=== PATIENT | male | born 1965 | race Caucasian/White ===

== ENCOUNTER → 2017-10-04 | Outpatient (CLI) | payer OTHER ==
[2017-10-04 14:53] LABS: Basophils # (A) 0.1 k/uL (0-0.2); Basophils % (A) 1 %; Eosinophils # (A) 0.4 k/uL (0-0.7); Eosinophils % (A) 6 %; HCT 46.3 % (39.0-53.0); HGB 15.7 gm/dL (13.0-17.5); Lymphocytes # (A) 1.7 k/uL (1.0-4.8); Lymphocytes % (A) 24 %; MCH 30.5 pg (25.0-35.0); MCV 89.9 fL (80.0-100.0); Mean Platelet Volume 6.8; Monocytes # (A) 0.4 k/uL (0-1.0); Monocytes % (A) 6 %; Neutrophils # (A) 4.3 k/uL (1.3-7.7); Neutrophils % (A) 62 %; Platelet Count 262 k/uL (150-450); RBC 5.15 m/uL (4.30-5.90); RDW 12.5 % (11.5-15.5); WBC 6.9 k/uL (3.8-10.6)
[2017-10-04 15:01] LABS: Potassium 4.4 mmol/L (3.5-5.1)
== END | disposition home or self-care (01) ==
LOC: LABPAT 14:21
PROVIDERS: ATTEND Orthopaedic Surgery
DX: Z01.812 Encounter for preprocedural laboratory examination (principal); G56.01 Carpal tunnel syndrome, right upper limb
CPT/HCPCS: 36415; 80051; 85025

== ENCOUNTER 2017-11-01 09:47 | Day surgery (SDC) | payer OTHER ==
--- NOTE | 2017-10-31 12:42 | HP ---
HISTORY AND PHYSICAL DATE OF SERVICE: 11/01/2017 Rick Lares is a 52-year-old patient seen with progressive symptomatic right carpal tunnel syndrome as well as a middle and ring finger trigger fingers. We discussed treatment options. He would proceed with surgical decompression of right median nerve and release of the right middle and ring finger trigger fingers. Consent was obtained. PAST MEDICAL HISTORY: Nkc-uqxflcy-reetnpjhr diabetes, hyperlipidemia. PAST SURGICAL HISTORY: Right knee arthroscopy. MEDICATIONS: 1. Glucophage. 2. Glyburide. 3. Lantus. 4. Lipitor. 5. Omeprazole. ALLERGIES: PENICILLIN. SOCIAL HISTORY: Patient denies current tobacco. PHYSICAL EVALUATION OF THE RIGHT HAND: He has a positive carpal compression, carpal Tinel's causing numbness, tingling within the median nerve distribution. There is tenderness along the A1 erna areas of the middle finger and ring fingers. There is some decreased sensation median nerve distribution. Good radial pulse. Good perfusion distally. Radiographs revealed mild osteoarthritis. EMG revealed carpal tunnel syndrome. IMPRESSION: 1. Right carpal tunnel syndrome. 2. Right middle finger trigger finger. 3. Right ring finger trigger finger. PLAN: 1. Decompression right median nerve. 2. Release A1 erna, right middle finger. 3. Release A1 erna, right ring finger. MMODL / IJN: [id number] /
[~2017-11-01 09:47] MED LIST: DEXAMETHASONE SOD PHOSPHATE 10 MG/ML 1 ML VIAL IV ONE; LACTATED RINGERS 1,000 ML IV SCH; ONDANSETRON 4 MG/2 ML VIAL IVP ONE; ceFAZolin IN SWFI 2 GM/20 ML SYRINGE IVP ONE
[2017-11-01 10:49] VITALS: TEMP 97
[2017-11-01 11:01] LABS: Glucose,Whole Blood 208 mg/dL (75-99)
[2017-11-01] MEDS ORDERED: PROPOFOL 10 MG/ML 20 ML VIAL IV ONE (12:16)
[2017-11-01] MEDS ORDERED: MIDAZOLAM 2 MG/2 ML VIAL ONE (12:16)
[2017-11-01] MEDS ORDERED: fentaNYL (PF) 50 MCG/ML 2 ML AMP ONE (12:16)
[2017-11-01] MEDS ORDERED: BUPIVACAINE (PF) 0.25% 30 ML VIAL SQ ONE ×2 (12:24)
[2017-11-01 12:55] VITALS: RESP 16
--- NOTE | 2017-11-01 13:02 | P.OP ---
Date of Procedure: 11/01/17 Preoperative Diagnosis: 1. Right carpal tunnel syndrome 2. Right middle finger trigger finger 3. Right ring finger trigger finger Postoperative Diagnosis: Same Procedure(s) Performed: 1. Decompression right median nerve 2. Release A1 erna right middle finger 3. Release A1 erna right ring finger Anesthesia: MAC, local Surgeon: Sundeep Morris Estimated Blood Loss (ml): 2 Pathology: none sent Condition: stable Disposition: PACU Indications for Procedure: 52-year-old patient seen was symptomatically right carpal tunnel syndrome as well as symptomatic trigger fingers involving the right middle finger and right ring finger. After treatment options were discussed, he elected to proceed with decompression right median nerve as well as release A1 erna right middle finger and right ring finger. Operative Findings: see description of procedure Description of Procedure: The patient was taken to the operative suite. The patient received preoperative IV antibiotics. The patient underwent IV sedation by the department of anesthesia. A well-padded tourniquet was placed on the proximal right upper extremity. The right upper extremity was prepped and draped in the normal sterile orthopedic fashion. We infiltrated the proposed incision sites with quarter percent plain Marcaine totaling 18 mL of all 3 proposed incision sites. The extremity was elevated and tourniquet was insufflated to 200. I now made an incision beginning at the distal volar wrist crease extending this approximate 3 cm in line with the fourth metacarpal sharply through skin. I dissected down through the subcu soft tissues and the palmar fascia to the transverse carpal ligament. I incised the transverse carpal ligament and released it proximally and distally with blunt Metzenbaums. There was complete release of the transverse carpal ligament good decompression of the nerve. I next made an incision along the A1 erna of the right middle finger. I dissected down to the A1 erna. A1 erna was identified and released without difficulty. We had good complete excursion of the tendon with no impingement noted. I now made an incision along the A1 erna area of the right ring finger. I dissected down to the A1 erna. The A1 erna was identified and released without difficulty. We had good excursion of the tendon with no impingement noted. All wounds were irrigated with saline. All incisions were proximal nylon suture. Sterile dressings were applied to all 3 incision sites. Sterile dressings were applied followed by a sterile web bone Jarett bandage. The tourniquet was now released with immediate capillary refill of all digits noted. The patient was then awakened, taken to recovery stable condition.
[2017-11-01 13:06] VITALS: BP 125/80; PULSE 94
[2017-11-01 13:18] LABS: Glucose,Whole Blood 229 mg/dL (75-99)
== END 2017-11-01 14:37 | disposition home or self-care (01) ==
LOC: OR 09:47
PROVIDERS: ATTEND Orthopaedic Surgery
DX: G56.01 Carpal tunnel syndrome, right upper limb (principal); M65.331 Trigger finger, right middle finger; M65.341 Trigger finger, right ring finger; E11.9 Type 2 diabetes mellitus without complications; E78.5 Hyperlipidemia, unspecified; F39 Unspecified mood [affective] disorder; K21.9 Gastro-esophageal reflux disease without esophagitis; Z79.84 Long term (current) use of oral hypoglycemic drugs; Z79.4 Long term (current) use of insulin; Z79.899 Other long term (current) drug therapy; Z88.0 Allergy status to penicillin
CPT/HCPCS: 64721; 26055 ×2; A4371; A4385; J2250; J1100; J2405; J3010; J2704; J0690

== ENCOUNTER → 2017-11-15 | Outpatient (CLI) | payer OTHER ==
[2017-11-15 18:33] LABS: Basophils # (A) 0.1 k/uL (0-0.2); Basophils % (A) 1 %; Eosinophils # (A) 0.8 k/uL (0-0.7); Eosinophils % (A) 12 %; HCT 38.3 % (39.0-53.0); Lymphocytes # (A) 1.7 k/uL (1.0-4.8); Lymphocytes % (A) 25 %; MCH 28.4 pg (25.0-35.0); MCHC 32.6 g/dL (31.0-37.0); Monocytes # (A) 0.4 k/uL (0-1.0); Monocytes % (A) 5 %; Neutrophils # (A) 3.9 k/uL (1.3-7.7); Neutrophils % (A) 56 %; Platelet Count 383 k/uL (150-450); RDW 13.2 % (11.5-15.5)
[2017-11-15 18:42] LABS: HGB 12.5 gm/dL (13.0-17.5)
[2017-11-15 18:46] LABS: Potassium 4.7 mmol/L (3.5-5.1)
== END | disposition home or self-care (01) ==
LOC: LABWHC1 17:08
PROVIDERS: ATTEND Psychiatry & Neurology Forensic Psychiatry
DX: Z01.812 Encounter for preprocedural laboratory examination (principal); G56.02 Carpal tunnel syndrome, left upper limb
CPT/HCPCS: 36415; 80051; 85025

== ENCOUNTER 2017-11-22 07:41 | Day surgery (SDC) | payer OTHER ==
[2017-11-17 13:52] VITALS: BMI 30.3
--- NOTE | 2017-11-21 11:40 | HP ---
HISTORY AND PHYSICAL DATE OF SERVICE: 11/22/2017 Rick Lares is a 52-year-old patient seen with symptomatic left carpal tunnel syndrome as well as trigger fingers involving the left middle finger and left small finger. We discussed treatment options. He elected to proceed with surgical intervention. Consent regarding the procedure was obtained. PAST MEDICAL HISTORY: Insulin-dependent diabetes, hyperlipidemia, gastroesophageal reflux disease. PAST SURGICAL HISTORY: Right knee arthroscopy, right carpal tunnel release. DAILY MEDICATIONS: 1. Lantus insulin. 2. Glyburide. 3. Glucophage. 4. Lipitor. 5. Omeprazole. ALLERGIES: PENICILLIN. SOCIAL HISTORY: Patient denies current tobacco use. PHYSICAL EVALUATION OF THE LEFT HAND: He has a positive carpal compression, carpal Tinel's which cause numbness and tingling into the median nerve distribution. There is tenderness along the A1 erna areas of the left small finger and left middle finger. Distal neurovascular exam is intact. EMG of the upper extremities revealed carpal tunnel syndrome. IMPRESSION: 1. Left carpal tunnel syndrome. 2. Left middle finger trigger finger. 3. Left small finger trigger finger. 4. Insulin-dependent diabetes. 5. Hyperlipidemia. 6. Gastroesophageal reflux disease. PLAN: Decompression left median nerve with release A1 pulleys of left middle finger and left small finger. MMODL / IJN: [id number] /
[~2017-11-22 07:41] MED LIST changes: +MORPHINE SULFATE 4 MG/ML SYRINGE IV PRN
[2017-11-22 08:04] VITALS: RESP 16; TEMP 98
[2017-11-22] MEDS ORDERED: LIDOCAINE 1% 20 ML VIAL (10MG/ML) FOR IV START INTRADERMA ONE (08:14)
[2017-11-22 08:24] LABS: Glucose,Whole Blood 74 mg/dL (75-99)
[2017-11-22] MEDS ORDERED: MIDAZOLAM 2 MG/2 ML VIAL ONE (10:59)
[2017-11-22] MEDS ORDERED: PROPOFOL 10 MG/ML 20 ML VIAL IV ONE (10:59)
[2017-11-22] MEDS ORDERED: LIDOCAINE 1% INJ 10MG/ML (20 ML MDV) ONE (10:59)
[2017-11-22] MEDS ORDERED: fentaNYL (PF) 50 MCG/ML 2 ML AMP ONE (10:59)
[2017-11-22] MEDS ORDERED: BUPIVACAINE (PF) 0.25% 30 ML VIAL SQ ONE (11:15)
[2017-11-22] MEDS ORDERED: LACTATED RINGERS 1,000 ML IV ONE (11:35)
--- NOTE | 2017-11-22 11:48 | P.OP ---
Date of Procedure: 11/22/17 Preoperative Diagnosis: 1. Left carpal tunnel syndrome 2. Left middle finger trigger finger 3. Left small finger trigger finger Postoperative Diagnosis: Same Procedure(s) Performed: 1. Decompression left median nerve 2. Release A1 erna left middle finger 3. Release A1 erna left small finger Anesthesia: MAC, local Surgeon: Sundeep Morris Estimated Blood Loss (ml): 2 Pathology: none sent Condition: stable Disposition: PACU Indications for Procedure: 52-year-old patient seen with symptomatic left carpal tunnel syndrome as well as symptomatic trigger fingers of the left middle finger left small finger. After treatment options were discussed elected proceed with decompression left median nerve as well as release A1 pulleys of the left middle finger left small finger. Operative Findings: see description of procedure Description of Procedure: Patient was taken to the operative suite. Patient underwent IV sedation by the department of anesthesia. A well-padded tourniquet was placed left proximal upper extremity. The patient received preoperative IV antibiotics. The extremity was elevated and tourniquet was insufflated to 250. I infiltrated all 3 proposed incision sites with a total of 20 mL quarter percent plain Marcaine. Once sufficient local analgesia was noted I made an incision beginning at the distal volar wrist crease extending distally approximately 3 cm in line with the fourth metacarpal sharply through skin. I dissected down through the subcutaneous soft tissues and through the palmar fascia to the transverse carpal ligament. I incised the transverse carpal ligament and completed the release proximally and distally with blunt Metzenbaums. We had good complete release of the transverse carpal ligament and good decompression of the nerve. I now turned my attention to the A1 erna area of the left small finger. An incision was made in that area, dissection taken down to the A1 erna. The A1 erna was identified and released. There was good complete release of the A1 erna with contractures of the tendon over impingement. I now made an incision over the A1 erna area of the left middle finger. Dissection taken down to the A1 erna. It was identified. I released the A1 erna. There was good complete release of the A1 erna with good excursion of the tendon and no impingement. With good hemostasis. All 3 incision sites were proximal nylon suture. Sterile dressings were applied. He was placed in a well-padded bandage. The tourniquet was released. There was good immediate capillary refill of all digits. The patient is an awakened, and taken recovery stable condition.
[2017-11-22 11:49] LABS: Glucose,Whole Blood 101 mg/dL (75-99)
[2017-11-22 12:29] VITALS: BP 113/78; PULSE 87
== END 2017-11-22 12:42 | disposition home or self-care (01) ==
LOC: OR 07:41
PROVIDERS: ATTEND Orthopaedic Surgery
DX: G56.02 Carpal tunnel syndrome, left upper limb (principal); M65.332 Trigger finger, left middle finger; M65.352 Trigger finger, left little finger; E11.9 Type 2 diabetes mellitus without complications; F39 Unspecified mood [affective] disorder; E78.5 Hyperlipidemia, unspecified; K21.9 Gastro-esophageal reflux disease without esophagitis; Z88.0 Allergy status to penicillin; Z79.4 Long term (current) use of insulin; Z79.899 Other long term (current) drug therapy; Z90.49 Acquired absence of other specified parts of digestive tract
CPT/HCPCS: 64721; 26055 ×2; J2250; J1100; J2405; J2001; J3010; J2704; J0690

== ENCOUNTER 2018-10-09 09:38 | Day surgery (SDC) | payer OTHER ==
[2018-10-04 17:03] VITALS: BMI 34.5
[~2018-10-09 09:38] MED LIST changes: -DEXAMETHASONE SOD PHOSPHATE 10 MG/ML 1 ML VIAL IV ONE; +LIDOCAINE 1% 20 ML VIAL (10MG/ML) FOR IV START INTRADERMA PRN; +MIDAZOLAM (PF) 2 MG/2 ML VIAL IV PRN; -MORPHINE SULFATE 4 MG/ML SYRINGE IV PRN; -ONDANSETRON 4 MG/2 ML VIAL IVP ONE; -ceFAZolin IN SWFI 2 GM/20 ML SYRINGE IVP ONE
[2018-10-09 10:26] VITALS: RESP 16; TEMP 98.2
[2018-10-09 10:26] LABS: Glucose,Whole Blood 106 mg/dL (75-99)
[2018-10-09] MEDS ORDERED: PROPOFOL 10 MG/ML 20 ML VIAL IV ONE (10:54)
--- NOTE | 2018-10-09 11:24 | P.OP ---
Date of Procedure: 10/09/18 Preoperative Diagnosis: History of colon cancer Postoperative Diagnosis: History of colon cancer, inflammation of anastomosis Procedure(s) Performed: Colonoscopy with biopsy Anesthesia: MAC Surgeon: Mary Dubose Pathology: other (Because of anastomosis) Condition: stable Disposition: PACU Indications for Procedure: Irrigation is one year status post low anterior resection for colon cancer Description of Procedure: The patient's taken the endoscopy suite where colonoscope is passed per rectum to the cecum. The prep is fair. There is liquidy material. Some of its able to be irrigated and aspirated but a small polyp could have been missed. The anastomosis is low about 5 cm. There is some inflammatory changes around the anastomosis. Multiple cold biopsies were obtained. Otherwise the rest colon was without evidence of polyp mass lesion or other mucosal abnormality. He tolerated the procedure without difficulty as taken recovery room in satisfactory condition. Call with the report of the biopsy and let him know what his follow-up should be. Plan - Discharge Summary Discharge Rx Participant: No New Discharge Prescriptions: No Action DULoxetine HCL [Cymbalta] 60 mg PO HS Insulin Glargine [Lantus] 50 unit SQ BID Lovastatin [Mevacor] 40 mg PO HS metFORMIN HCL 1,000 mg PO BID Ibuprofen 800 mg PO Q8HR PRN #30 tablet PRN Reason: Pain Liraglutide [Victoza 2-Valente] 1.8 mg SQ DAILY Pioglitazone HCl [Actos] 30 mg PO DAILY Discharge Medication List DULoxetine HCL [Cymbalta] 60 mg PO HS 10/30/17 [History] Insulin Glargine [Lantus] 50 unit SQ BID 10/30/17 [History] Lovastatin [Mevacor] 40 mg PO HS 10/30/17 [History] metFORMIN HCL 1,000 mg PO BID 10/30/17 [History] Ibuprofen 800 mg PO Q8HR PRN #30 tablet 11/22/17 [Rx] Liraglutide [Victoza 2-Valente] 1.8 mg SQ DAILY 10/04/18 [History] Pioglitazone HCl [Actos] 30 mg PO DAILY 10/05/18 [History] Discharge Disposition: HOME SELF-CARE
[2018-10-09 11:46] VITALS: BP 120/73; PULSE 74
[2018-10-09 11:58] LABS: Glucose,Whole Blood 97 mg/dL (75-99)
== END 2018-10-09 12:25 | disposition home or self-care (01) ==
LOC: ORWHC2ENDO 09:38
PROVIDERS: ATTEND Surgery
DX: K91.89 Other postprocedural complications and disorders of digestive system (principal); K52.9 Noninfective gastroenteritis and colitis, unspecified; Z98.0 Intestinal bypass and anastomosis status; Z90.49 Acquired absence of other specified parts of digestive tract; Z85.038 Personal history of other malignant neoplasm of large intestine; Z85.048 Personal history of other malignant neoplasm of rectum, rectosigmoid junction, and anus; E11.9 Type 2 diabetes mellitus without complications; E78.00 Pure hypercholesterolemia, unspecified; E78.5 Hyperlipidemia, unspecified; M19.90 Unspecified osteoarthritis, unspecified site; K21.9 Gastro-esophageal reflux disease without esophagitis; F32.9 Major depressive disorder, single episode, unspecified; Z79.4 Long term (current) use of insulin; Z79.899 Other long term (current) drug therapy; Z88.0 Allergy status to penicillin; Z98.1 Arthrodesis status
CPT/HCPCS: 88305; 45380; J2704

== ENCOUNTER 2019-11-05 10:43 | Day surgery (SDC) | payer OTHER ==
[2019-10-31 15:41] VITALS: BMI 36.3
[~2019-11-05 10:43] MED LIST changes: +LIDOCAINE 1% (10MG/ML) FOR IV START INTRADERMA PRN; -LIDOCAINE 1% 20 ML VIAL (10MG/ML) FOR IV START INTRADERMA PRN; -MIDAZOLAM (PF) 2 MG/2 ML VIAL IV PRN; +MIDAZOLAM 2 MG/2 ML VIAL IV PRN
[2019-11-05 11:10] VITALS: TEMP 97.5
[2019-11-05 11:12] LABS: Glucose,Whole Blood 85 mg/dL (75-99)
[2019-11-05] MEDS ORDERED: MIDAZOLAM 2 MG/2 ML VIAL ONE (11:58)
[2019-11-05] MEDS ORDERED: fentaNYL (PF) 50 MCG/ML 2 ML AMP ONE (11:58)
[2019-11-05] MEDS ORDERED: PROPOFOL 10 MG/ML 20 ML VIAL IV ONE (11:58)
[2019-11-05] MEDS ORDERED: LIDOCAINE 1% INJ 10MG/ML (20 ML MDV) ONE (11:58)
--- NOTE | 2019-11-05 12:01 | P.GSHP ---
History of Present Illness H&P Date: 11/05/19 colon cancer screening - Review of Systems All systems: negative Past Medical History Past Medical History: Cancer, Diabetes Mellitus, Hyperlipidemia, Osteoarthritis (OA) Additional Past Medical History / Comment(s): HX COLORECTAL CANCER W/Iliostomy, now reversed History of Any Multi-Drug Resistant Organisms: None Reported Past Surgical History: Bowel Resection, Orthopedic Surgery Additional Past Surgical History / Comment(s): BOWEL surgery with Iliostomy. reversal of iliostomy, CERVICAL FUSION. RIGHT SHOULDER BONE SPUR. LEFT KNEE arthroscopy, [facility]. Past Anesthesia/Blood Transfusion Reactions: No Reported Reaction Smoking Status: Never smoker - Past Family History Daughter(s) Family Medical History: Deep Vein Thrombosis (DVT) Father Family Medical History: Cancer Additional Family Medical History / Comment(s): PROSTATE CA Medications and Allergies Home Medications Medication Instructions Recorded Confirmed Type DULoxetine HCL [Cymbalta] 60 mg PO HS 10/30/17 11/05/19 History Lovastatin [Mevacor] 40 mg PO HS 10/30/17 11/05/19 History metFORMIN HCL 1,000 mg PO BID 10/30/17 11/05/19 History Ibuprofen 800 mg PO Q8HR PRN #30 tablet 11/22/17 11/05/19 Rx Liraglutide [Victoza 2-Valente] 1.8 mg SQ DAILY 10/04/18 11/05/19 History Pioglitazone HCl [Actos] 30 mg PO DAILY 10/05/18 11/05/19 History Insulin Glargine,Hum.rec.anlog 50 unit SQ BID 10/31/19 11/05/19 History [Basaglar Dimitry U-100] Allergies Allergy/AdvReac Type Severity Reaction Status Date / Time Penicillins Allergy Unknown Verified 11/05/19 11:05 Childhood HAYFEVER Allergy Itching, Uncoded 11/05/19 11:05 NASAL CONGESTION Surgical - Exam Osteopathic Statement: *. No significant issues noted on an osteopathic structural exam other than those noted in the History and Physical/Consult. Vital Signs Temp Pulse Resp BP Pulse Ox 97.5 F L 81 16 142/81 96 11/05/19 11:07 11/05/19 11:07 11/05/19 11:07 11/05/19 11:07 11/05/19 11:07 - General well developed, well nourished, no distress - Eyes normal ocular movement - Neck trachea midline - Respiratory normal respiratory effort - Cardiovascular Rhythm: regular - Abdomen Abdomen: soft, non tender Assessment and Plan (1) Colon cancer screening Current Visit: Yes Status: Acute Code(s): Z12.11 - ENCOUNTER FOR SCREENING FOR MALIGNANT NEOPLASM OF COLON SNOMED Code(s): 522252093 Plan: colonoscopy.
--- NOTE | 2019-11-05 12:23 | P.OP ---
Date of Procedure: 11/05/19 Preoperative Diagnosis: History of colon cancer, colon cancer screening Postoperative Diagnosis: History of colon cancer, colon cancer screening, Procedure(s) Performed: Colonoscopy with biopsy Anesthesia: MAC Surgeon: Mary Dubose Pathology: other (Polypoid areas at anastomosis) Condition: stable Disposition: PACU Indications for Procedure: Patient has a history of a low anterior resection in September 2017. He had a colonoscopy a year ago showing anastomotic ulcerations. This was treated with steroid suppositories. Description of Procedure: The patient's taken the endoscopy suite where colonoscope is passed per rectum to the cecum. No masses on digital rectal exam. He has a low anastomosis. The prep was fair. There is some thicker material which is irrigated and aspirated. There several polypoid areas which may be granulation tissue versus polyps. He has a small amount of diverticulosis in the descending colon. The rest the colon was without evidence of polyp, mass lesion, stricture or other mucosal abnormality. 3 polypoid areas which were less than 1 cm in size were removed with polypectomy snare and sent for pathology. He tolerated the procedure without difficulty and was taken recovery room in satisfactory condition. I'll call with the report of the biopsies and have further recommendations to follow. Plan - Discharge Summary Discharge Rx Participant: No New Discharge Prescriptions: No Action DULoxetine HCL [Cymbalta] 60 mg PO HS Lovastatin [Mevacor] 40 mg PO HS metFORMIN HCL 1,000 mg PO BID Ibuprofen 800 mg PO Q8HR PRN #30 tablet PRN Reason: Pain Liraglutide [Victoza 2-Valente] 1.8 mg SQ DAILY Pioglitazone HCl [Actos] 30 mg PO DAILY Insulin Glargine,Hum.rec.anlog [Lorena Moraes U-100] 50 unit SQ BID Discharge Medication List DULoxetine HCL [Cymbalta] 60 mg PO HS 10/30/17 [History] Lovastatin [Mevacor] 40 mg PO HS 10/30/17 [History] metFORMIN HCL 1,000 mg PO BID 10/30/17 [History] Ibuprofen 800 mg PO Q8HR PRN #30 tablet 11/22/17 [Rx] Liraglutide [Victoza 2-Valente] 1.8 mg SQ DAILY 10/04/18 [History] Pioglitazone HCl [Actos] 30 mg PO DAILY 10/05/18 [History] Insulin Glargine,Hum.rec.anlog [Lorena Moraes U-100] 50 unit SQ BID 10/31/19 [History] Discharge Disposition: HOME SELF-CARE
[2019-11-05 12:29] LABS: Glucose,Whole Blood 81 mg/dL (75-99)
[2019-11-05 12:56] VITALS: BP 132/69; PULSE 67; RESP 18
== END 2019-11-05 13:04 | disposition home or self-care (01) ==
LOC: ORWHC2ENDO 10:43
PROVIDERS: ATTEND Surgery
DX: Z12.11 Encounter for screening for malignant neoplasm of colon (principal); K51.90 Ulcerative colitis, unspecified, without complications; K57.30 Diverticulosis of large intestine without perforation or abscess without bleeding; Z85.038 Personal history of other malignant neoplasm of large intestine; E11.9 Type 2 diabetes mellitus without complications; E78.5 Hyperlipidemia, unspecified; M19.90 Unspecified osteoarthritis, unspecified site; I10 Essential (primary) hypertension; Z90.49 Acquired absence of other specified parts of digestive tract; Z98.890 Other specified postprocedural states; Z98.1 Arthrodesis status; Z86.69 Personal history of other diseases of the nervous system and sense organs; Z98.0 Intestinal bypass and anastomosis status; Z82.49 Family history of ischemic heart disease and other diseases of the circulatory system; Z80.42 Family history of malignant neoplasm of prostate; Z79.899 Other long term (current) drug therapy; Z79.1 Long term (current) use of non-steroidal anti-inflammatories (NSAID); Z79.4 Long term (current) use of insulin; Z88.0 Allergy status to penicillin; Z91.048 Other nonmedicinal substance allergy status
CPT/HCPCS: 88305; 45385; J2250; J2001; J3010; J2704

== ENCOUNTER → 2020-12-29 | Outpatient (CLI) | payer BC, OTHER ==
--- NOTE | 2020-12-29 15:17 | MR ---
EXAMINATION TYPE: MR shoulder RT wo con DATE OF EXAM: 12/29/2020 2:01 PM COMPARISON: NONE HISTORY: Right shoulder pain for 1 year. TECHNIQUE: Multiplanar multispin echo imaging of the right shoulder was performed. FINDINGS: Rotator cuff : Thickening and heterogeneity of the supraspinatus tendon compatible with chronic tendi nopathy. No evidence for partial or full-thickness tear. Bursa: No bursal effusion or thickening is seen. Musculature: There is no muscular tear, contusion, or atrophy. Acromioclavicular joint : Severe AC joint arthropathy. Lateral downsloping of the acromion resulting in subacromial impingement. Osseous structures : There are no fractures or regions of abnormal bone marrow signal intensity. Long biceps tendon : The biceps tendon is normally situated within the bicipital groove. No complete or partial biceps tendon tear is present. Glenohumeral Joint fluid : There is no glenohumeral joint effusion. Cartilage and Bone : No focal hyaline cartilage defects are noted. No Hill-Sachs, reverse Hill-Sachs, or bony Bankart lesions are seen. Labrum : There are no SLAP or soft tissue Bankart lesions. No paralabral cysts are seen. OTHER FINDINGS : none IMPRESSION: 1. Thickening and heterogeneity of the supraspinatus tendon compatible with chronic tendinopathy.
== END | disposition home or self-care (01) ==
LOC: RADMRIMAIN 13:12
PROVIDERS: ATTEND Orthopaedic Surgery
DX: M67.813 Other specified disorders of tendon, right shoulder (principal)

== ENCOUNTER → 2021-02-01 | Outpatient (CLI) | payer BC, OTHER ==
[2021-02-01 15:43] LABS: Basophils % (A) 1 %; Eosinophils # (A) 0.1 k/uL (0-0.7); Eosinophils % (A) 2 %; HCT 35.1 % (39.0-53.0); HGB 11.7 gm/dL (13.0-17.5); Lymphocytes % (A) 18 %; MCH 31.4 pg (25.0-35.0); MCHC 33.3 g/dL (31.0-37.0); MCV 94.4 fL (80.0-100.0); Mean Platelet Volume 7.2; Monocytes # (A) 0.4 k/uL (0-1.0); Monocytes % (A) 7 %; Neutrophils # (A) 4.1 k/uL (1.3-7.7); Neutrophils % (A) 72 %; Platelet Count 221 k/uL (150-450); RBC 3.71 m/uL (4.30-5.90); RDW 13.4 % (11.5-15.5); WBC 5.6 k/uL (3.8-10.6)
== END | disposition home or self-care (01) ==
LOC: LABPAT 14:37
PROVIDERS: ATTEND Orthopaedic Surgery
DX: Z01.818 Encounter for other preprocedural examination (principal); M75.41 Impingement syndrome of right shoulder; I45.10 Unspecified right bundle-branch block; I44.0 Atrioventricular block, first degree
CPT/HCPCS: 36415; 80051; 85025; 93005

== ENCOUNTER 2021-02-15 05:36 | Day surgery (SDC) | payer BC, OTHER ==
[2021-02-11 12:59] VITALS: BMI 33.0
--- NOTE | 2021-02-14 11:48 | HP ---
HISTORY AND PHYSICAL DATE OF SURGERY: 02/15/2021 Felix Lares is a 55-year-old gentleman seen with progressive right shoulder pain. We discussed options for treatment. He elected to proceed with right shoulder arthroscopy. Consent was obtained. PAST MEDICAL HISTORY: Insulin-dependent diabetes, hyperlipidemia, gastroesophageal reflux disease. PAST SURGICAL HISTORY: Right knee arthroscopy. MEDICATIONS: Lantus insulin, Victoza, omeprazole, atorvastatin, glyburide, Glucophage. ALLERGIES: PENICILLIN. SOCIAL HISTORY: He denies tobacco use. PHYSICAL EVALUATION OF THE RIGHT SHOULDER: Flexion 150 degrees, abduction 130 degrees, external rotation is 35 degrees with pain and weakness. Tenderness along the anterior lateral acromion and rotator cuff insertion site. Impingement positive at 90 degrees. Drop-arm sign is positive. Distal neurovascular exam is intact. RADIOGRAPHS: Right shoulder radiographs revealed a lateral downsloping sloping anterior acromion as well as acromioclavicular joint osteoarthritis. Right shoulder MRI reveals severe acromioclavicular joint osteoarthritis, impingement, chronic tendinitis with partial rotator cuff tear. IMPRESSION: 1. Right shoulder impingement with rotator cuff tendinitis and partial rotator cuff tear. 2. Right shoulder acromioclavicular joint osteoarthritis. 3. Insulin-dependent diabetes. 4. Hyperlipidemia. PLAN: Right shoulder arthroscopy with subacromial decompression, arthroscopic Latia procedure, possible arthroscopic rotator cuff repair and debridement. SHALA / BHUPINDERN: [id number] /
[2021-02-15] MEDS ORDERED: ONDANSETRON 4 MG/2 ML VIAL IVP ONE (05:41)
[2021-02-15] MEDS ORDERED: HYDROmorphone 0.5 MG/0.5 ML SYRINGE IVP PRN (05:41)
[2021-02-15] MEDS ORDERED: DEXAMETHASONE SOD PHOSPHATE 4 MG/ML 1 ML VIAL IV ONE (05:41)
[2021-02-15] MEDS ORDERED: MIDAZOLAM 2 MG/2 ML VIAL IV PRN (05:41)
[2021-02-15] MEDS ORDERED: LIDOCAINE 1% (10MG/ML) FOR IV START INTRADERMA ONE (06:30)
[2021-02-15] MEDS: LACTATED RINGERS 1,000 ML IV SCH ×2 (06:30→09:49)
[2021-02-15] MEDS ORDERED: SCOPOLAMINE 1.5MG/72HR PATCH TRANSDERM ONE (06:59)
[2021-02-15] MEDS ORDERED: MIDAZOLAM 2 MG/2 ML VIAL IVP ONE (07:03)
[2021-02-15 07:15] LABS: Glucose,Whole Blood 116 mg/dL (75-99)
[2021-02-15] MEDS ORDERED: SUCCINYLCHOLINE CHLORIDE 100 MG/5 ML SYR IV ONE (07:27)
[2021-02-15] MEDS ORDERED: ROPIVACAINE 5 MG/ML 30 ML VIAL ONE (07:27)
[2021-02-15] MEDS ORDERED: LIDOCAINE 1% INJ 10MG/ML (20 ML MDV) ONE (07:27)
[2021-02-15] MEDS ORDERED: DEXAMETHASONE SOD PHOSPHATE 4 MG/ML 1 ML VIAL ONE (07:27)
[2021-02-15] MEDS ORDERED: PROPOFOL 10 MG/ML 20 ML VIAL IV ONE (07:27)
[2021-02-15] MEDS ORDERED: fentaNYL (PF) 50 MCG/ML 2 ML AMP ONE (07:27)
[2021-02-15] MEDS ORDERED: ROCURONIUM 10 MG/ML (5 ML VIAL) IV ONE (07:27)
[2021-02-15 09:16] VITALS: TEMP 97.1
--- NOTE | 2021-02-15 09:22 | P.OP ---
Date of Procedure: 02/15/21 Preoperative Diagnosis: Right shoulder impingement Postoperative Diagnosis: 1. Right shoulder rotator cuff tear 2. Right shoulder impingement 3. Right shoulder acromioclavicular joint osteoarthritis 4. Right shoulder superficial anterior labral tear Procedure(s) Performed: 1. Right shoulder arthroscopic rotator cuff repair 2. Right shoulder arthroscopic subacromial decompression 3. Right shoulder arthroscopic Latia procedure 4. Right shoulder arthroscopic debridement superficial labral tear Implants: 1Arthrex 4.75 swivel lock anchor Anesthesia: GETA, regional (Interscalene block) Surgeon: Sundeep Morris Angle Furnaceman #1: Pablito Cobb Estimated Blood Loss (ml): 11 Pathology: none sent Condition: stable Disposition: PACU Indications for Procedure: 55-year-old patient seen with progressive right shoulder pain. After having treatment options discussed he elected to proceed with arthroscopy. Operative Findings: See description of procedure Description of Procedure: Patient underwent an interscalene block by department of anesthesia. The patient was then taken to the operative suite. The patient underwent a general anesthetic by the department of anesthesia. The patient was placed into a lateral position and secured. There was appropriate padding of the bony prominence. Right shoulder was then prepped and draped in normal sterile orthopedic fashion. We placed the extremity in 10 pounds of longitudinal traction. A posterior incision was now made for a posterior working portal site. The trocar and cannula were inserted into the glenohumeral joint. Arthroscopy was initiated. Spinal needle was now inserted anteriorly, to ascertain the anterior working portal site. An incision was now made in that area, a trocar was inserted followed by a probe. There was some superficial tearing of the anterior labrum. There was some mild grade 1 chondromalacia along the anterior glenoid fossa area. The remainder of the glenohumeral joint was unremarkable. The biceps was probed and found to be stable. I introduced a motorized shaver and debrided out the superficial fraying of the anterior labrum. I reintroduced the probe and noted good stability about the residual labrum. At this point instruments removed from glenohumeral joint. Utilizing the posterior working portal site, the trocar and cannula were inserted into the subacromial space. Arthroscopy initiated. I made an incision 2 fingerbreadths lateral to the acromion. I introduced my trocar followed by my ArthroCare ablator. I now began ablating thick subacromial bursal tissue, which exposed the undersurface of the anterior acromion. There was diminished subacromial space. There was a very prominent anterior acromion. A motorized bur was introduced and a subacromial decompression was performed. I also excised some osteophytes off the inferior aspect of the distal clavicle. The AC joint was visualized and noted to be fairly arthritic. The motorized bur was introduced in the anterior portal site and a Latia procedure was performed without difficulty, decompressing the AC joint nicely. I turned my attention to the rotator cuff. There was significant partial tearing along the posterior aspect of the distal supraspinatus. Upon probing the area noted a full- thickness perforation. I used a motorized shaver and debrided the margins getting down to stable tendon tissue. The defect measured approximately 1 cm. I abraded the footprint with a motorized bur. With the assistance of Pablito ALVARADO we passed 2 everted mattress sutures through good bites of rotator cuff tendon. I punched the hole in the footprint for insertion of an anchor. I passed all 4 limbs of suture through the eyelet of a 4.75 Arthrex swivel lock anchor. I placed the eyelet into the pre-punch hole. All 4 suture limbs were tensioned by Pablito ALVARADO was held the anchor in position. He now deployed the anchor with good fixation noted. All residual suture limbs were now clipped. We had good compression of the tendon along the entire footprint. Instruments now removed from the portal sites. All portal sites were approximated with nylon suture. Sterile dressings were applied followed by a shoulder sling. Pablito ALVARADO assisted in this case. The patient was awakened, transferred to a bed, and taken to recovery in stable condition.
[2021-02-15 09:30] VITALS: RESP 16
[2021-02-15 09:41] LABS: Glucose,Whole Blood 127 mg/dL (75-99)
[2021-02-15 10:29] VITALS: PULSE 63
[2021-02-15 10:38] VITALS: BP 108/69
--- NOTE | 2021-02-16 08:29 | P.ANPRN ---
Procedure Note - Anesthesia - Nerve Block Performed Right Interscalene Single Time Out Performed: Yes Date of Procedure: 02/15/21 Procedure Start Time: : Procedure Stop Time: :07 Location of Patient: PreOp Indication: Acute Post-Operative Pain, Requested by Surgeon Sedation Type: Sedate with meaningful contact maintained Preparation: Sterile Prep Position: Supine Needle Types: Pajunk Needle Gauge: 21 Ultrasound used to visualize needle placement: Yes Ultrasound used to observe medication spread: Yes Blood Aspirated: No Pain Paresthesia on Injection Noted: No Resistance on Injection: Normal Image Stored and Saved: Yes Events: Uneventful and Well Tolerated (ropi .5% 25cc plus dexamethasone 4mg)
== END 2021-02-15 10:50 | disposition home or self-care (01) ==
LOC: OR 05:36
PROVIDERS: ATTEND Orthopaedic Surgery
DX: M75.101 Unspecified rotator cuff tear or rupture of right shoulder, not specified as traumatic (principal); M25.811 Other specified joint disorders, right shoulder; M19.011 Primary osteoarthritis, right shoulder; S43.431A Superior glenoid labrum lesion of right shoulder, initial encounter; X58.XXXA Exposure to other specified factors, initial encounter; M94.211 Chondromalacia, right shoulder; M25.711 Osteophyte, right shoulder; E11.9 Type 2 diabetes mellitus without complications; E78.5 Hyperlipidemia, unspecified; K21.9 Gastro-esophageal reflux disease without esophagitis; I10 Essential (primary) hypertension; M19.90 Unspecified osteoarthritis, unspecified site; Z97.2 Presence of dental prosthetic device (complete) (partial); Z79.4 Long term (current) use of insulin; Z79.899 Other long term (current) drug therapy; Z88.0 Allergy status to penicillin
CPT/HCPCS: 64415; 76942; 29826; 29827; 29824; C1713 ×2; J2250; J1100; J0690; J2405; J2001; J3010; J2795; J0330; J2704

== ENCOUNTER → 2022-08-17 | Outpatient (CLI) | payer BC, OTHER ==
--- NOTE | 2022-08-17 10:51 | MR ---
EXAMINATION TYPE: MR knee LT wo con DATE OF EXAM: 08/17/2022 COMPARISON: Outside left knee x-ray August 09, 2022 HISTORY: PAIN IN LEFT KNEE after recent slip and fall injury TECHNIQUE: Multiplanar, multisequence images of the knee is performed without IV contrast. FINDINGS: MEDIAL MENISCUS: Medial extrusion medial meniscus on coronal images. Oblique increased signal anterio r horn extends to the anterior surface. Increased signal with fraying of the posterior horn is presen t. LATERAL MENISCUS: Horizontal increased signal lateral meniscus as vertical component in the anterior horn sagittal image 9 for reference extending to articular surface. CRUCIATE LIGAMENTS: The anterior and posterior cruciate ligaments are intact and unremarkable. COLLATERAL LIGAMENTS: The medial collateral ligament and lateral collateral ligament complex are inta ct and unremarkable. EXTENSOR MECHANISM: Visualized quadriceps and patellar tendons are intact. EFFUSION: No significant suprapatellar joint effusion. POPLITEAL CYST: No popliteal/shi cyst. TRICOMPARTMENT SPACES: Moderate to borderline severe narrowing medial tibiofemoral compartment with m [id number] spurring. Moderate narrowing patellofemoral compartment with mild to moderate spurrin g. CARTILAGE: Chondromalacia patella with cartilaginous loss along the posterior patellar pole. BONE MARROW SIGNAL: Areas of heterogeneous increased signal or subchondral cystic change along the po sterior lateral aspect are present at site of most prominent cartilaginous loss and narrowing. OTHER: Multiseptated cystic change in the popliteal region posterior to the tibial plateau noted. IMPRESSION: 1. Full-thickness oblique tear anterior horn medial meniscus. 2. Complex full-thickness tear posterior horn medial meniscus extending into central body. 3. Vertical full-thickness tear anterior horn lateral meniscus. 4. 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
== END | disposition home or self-care (01) ==
LOC: RADMRIMAIN 07:57
PROVIDERS: ATTEND Orthopaedic Surgery
DX: S83.242A Other tear of medial meniscus, current injury, left knee, initial encounter (principal); M17.12 Unilateral primary osteoarthritis, left knee

== ENCOUNTER → 2022-09-30 | Outpatient (CLI) | payer BC, OTHER ==
[2022-09-30 22:50] LABS: INR 0.95 (0.90-1.11); Prothrombin Time 10.8 sec (9.9-11.9)
[2022-09-30 23:08] LABS: HCT 40.9 % (39.6-50.0); HGB 13.1 g/dL (13.0-17.0); MCV 96.9 fL (80.0-97.0); Mean Platelet Volume 10.2 fL (9.5-12.2); NRBC Per 100 WBC 0 /100 WBCS (0.0-0.0); Platelet Count 273 X 10*3/uL (140-440); RBC 4.22 X 10*6/uL (4.40-5.60); RDW 12.5 % (11.5-14.5); WBC 6.12 X 10*3/uL (4.50-10.00)
[2022-09-30 23:27] LABS: Anion Gap 8.5 mmol/L (10.00-18.00); Carbon Dioxide 28.5 mmol/L (20.0-27.5)
== END | disposition home or self-care (01) ==
LOC: LABPAT 16:09
PROVIDERS: ATTEND Orthopaedic Surgery
DX: Z01.818 Encounter for other preprocedural examination (principal); I44.0 Atrioventricular block, first degree; I45.10 Unspecified right bundle-branch block; R94.31 Abnormal electrocardiogram [ECG] [EKG]
CPT/HCPCS: 80051; 85027; 85610; 93005